=== PATIENT | male | born 1945 | race Hispanic/Latino ===

== ENCOUNTER 2019-12-26 09:32 | Inpatient (IN) | payer MEDICARE, OTHER ==
[~2019-12-26] VITALS: Ht 162.6 cm; Wt 81.4 kg
[2019-12-26 09:58] LABS: BASOPHILS % 0.2 % (0.0-1.0); EOSINOPHILS % 0.2 % (0.0-6.0); HEMATOCRIT 40.8 % (38.2-49.6); HEMOGLOBIN 13.4 g/dL (14.0-18.0); LYMPHOCYTES # (AUTO) 2.5 (1.0-3.2); LYMPHOCYTES % 18.9 % (18.0-39.1); MEAN CORPUSCULAR HEMOGLOBIN 28.2 pg (28-32); MEAN CORPUSCULAR HGB CONC 32.8 g/dL (31-35); MEAN CORPUSCULAR VOLUME 85.7 fL (81-99); MONOCYTES # (AUTO) 0.9 (0.2-0.8); MONOCYTES % 6.5 % (4.4-11.3); NEUTROPHILS # (AUTO) 9.6 (2.1-6.9); NEUTROPHILS % 73.8 % (38.7-80.0); PLATELET COUNT 317 x10e3/uL (140-360); RED BLOOD COUNT 4.76 x10e6/uL (4.3-5.7); RED CELL DISTRIBUTION WIDTH 13.2 % (11.7-14.4)
--- NOTE | 2019-12-26 10:13 | Diagnostic Imaging Report ---
EXAMINATION: CHEST SINGLE (PORTABLE) INDICATION: Arm numbness COMPARISON: None FINDINGS: LINES/TUBES:None LUNGS:The lungs are well-inflated. No focal consolidation or pulmonary edema. PLEURA:No pleural effusion or pneumothorax. MEDIASTINUM:The cardiomediastinal silhouette appears normal in size and shape. BONES/SOFT TISSUES:No acute osseous injury. ABDOMEN:No free air under the diaphragm. IMPRESSION: No focal pneumonia or pulmonary edema. Signed by: Shima Maurer MD on 12/26/2019 10:10 AM
[2019-12-26 10:15] LABS: PROTHROMBIN TIME 13.7 seconds (11.9-14.5)
[2019-12-26 10:16] LABS: PARTIAL THROMBOPLASTIN TIME 35.1 seconds (23.8-35.5)
[2019-12-26 10:29] LABS: ALANINE AMINOTRANSFERASE 16 IU/L (0-55); ALBUMIN/GLOBULIN RATIO 1.1 (0.8-2.0); ALKALINE PHOSPHATASE 74 IU/L (40-150); BLOOD UREA NITROGEN 13 mg/dL (7-26); BUN/CREATININE RATIO 14 (6-25); CALCIUM 9.9 mg/dL (8.4-10.2); CARBON DIOXIDE 26 mmol/L (22-29); CHLORIDE 99 mmol/L (98-107); CREATINE KINASE 338 IU/L (30-200); CREATININE, SERUM 0.94 mg/dL (0.72-1.25); EST GLOMERULAR FILTRATION RATE > 60 ML/MIN (60-); GLUCOSE 185 mg/dL (74-118); SODIUM 132 mmol/L (136-145)
[2019-12-26] MEDS ORDERED: SODIUM CHLORIDE 0.9% 50ML 50 ML ONE (10:29)
--- NOTE | 2019-12-26 10:29 | Diagnostic Imaging Report ---
Exam: Head CT without contrast History: Left arm numbness x2 days, history of brain tumor Comparison studies: None Technique: Axial images were obtained from the skull base to the vertex prior to and following administration of IV contrast. Coronal and sagittal images reconstructed from the axial data. Dose modulation, iterative reconstruction, and/or weight based adjustment of the mA/kV was utilized to reduce the radiation dose to as low as reasonably achievable. Radiation dose: Total DLP: 1842 mGy*cm. Estimated effective dose: DLP x 0.015 Intravenous contrast: 100 cc Isovue-300. Findings: Scalp and bones: Postsurgical changes of prior right parietal craniotomy. Brain sulci: Mildly prominent. Ventricles: Mild ex vacuo dilatation of the atria of the right lateral ventricle. Mild compensatory dilatation of the remaining ventricles. No acute hydrocephalus. Extra-axial spaces: No masses, no fluid collection. Parenchyma: Postsurgical changes with resection cavity in the right parietal lobe beneath a right parietal craniotomy for previous tumor resection. Regional nonspecific hypodense changes without significant mass effect are present throughout the right parietal white matter, posterior right temporal lobe, anteriorly along the right precentral gyrus within the splenium of the corpus callosum. These changes may be gliosis or edema secondary to treatment or possibly nonenhancing infiltrating tumor (such as that in the context of a primary glial neoplasm). No enhancing mass. No acute hemorrhage or acute cortical infarct. A few scattered hypodensities in the supratentorial white matter are nonspecific but may be mild chronic microvascular ischemic changes. Sellar/suprasellar region: No abnormalities. Craniocervical junction: Patent foramen magnum. No Chiari one malformation. Incidental findings: Partially opacified right sphenoid sinus with mucosal thickening. Atherosclerotic calcifications in the carotid siphons an in the right intradural vertebral artery. IMPRESSION: 1. No acute intracranial abnormalities. 2. Right parietal craniotomy for prior tumor resection with underlying resection cavity and region nonspecific parenchymal hypodense changes without significant mass effect as described. No enhancing mass. Recommend correlation with surgical/treatment history. Comparison with prior outside imaging is also advised to document stability of these findings. 3. Mild generalized parenchymal volume loss. 4. Mild chronic microvascular ischemic changes. Signed by: Dr. Abdulkadir Sarmiento M.D. on 12/26/2019 10:25 AM
[2019-12-26] MEDS ORDERED: IOPAMIDOL 370 MG/ML 200 ML INFUS..BTL INJ ONE (10:30)
[2019-12-26] MEDS ORDERED: ASPIRIN 325 MG TAB PO ONE (10:45)
--- NOTE | 2019-12-26 11:01 | Emergency Department Note ---
History of Present Illnes History of Present Illness Chief Complaint: General Medicine Complaints History of Present Illness This is a 74 year old male . hief Complaint Comment YESTERDAY LEFT ARM WENT NUMB AND HARD TIME USING LEFT HAND. PT AAOX4. SLOW, BUT ABLE TO AMBULATE. NO SLURRED SPEECH. PT HAS BRAIN TUMOR DX 3 YRS AGO. Historian: Patient, Family Member Arrival Mode: Car Onset (how long ago): day(s) (2) Location: LEFT ARM NUMBNESS Quality: NUMBNESS Radiation: Denies non-radiation, Denies back, Denies neck, Denies extremity, Denies abdomen, Denies periumbilical, Denies flank, Denies proximal, Denies distal, Denies other Severity: moderate Onset quality: gradual Duration (how long): day(s) (2) Timing of current episode: constant Progression: unchanged Chronicity: new Context: Denies recent illness, Denies recent surgery, Denies recent immobilization, Denies recent travel, Denies trauma/injury, Denies new medications, Denies hx of DVT/PE, Denies non-compliance w/ medications, Denies other Relieving factors: none Exacerbating factors: none Associated symptoms: Denies denies other symptoms, Denies confusion, Denies chest pain, Denies cough, Denies diaphoresis, Denies fever/chills, Denies headaches, Denies loss of appetite, Denies malaise, Denies nausea/vomiting, Denies rash, Denies seizure, Denies shortness of breath, Denies syncope, Denies weakness, Denies other Treatments prior to arrival: none Past Medical/Family History Physician Review I have reviewed the patient's past medical and family history. Any updates have been documented here. Past Medical History Recent Fever: No Clinical Suspicion of Infectio: No New/Unexplained Change in Ment: No Other Medical History: GLIOBLASTOMA (DX 2017) Social History Smoking Cessation: Unknown if ever smoked Counseling Performed: No Alcohol Use: None Any Illegal Drug Use: No Physically hurt or threatened: No Other Any Pre-Existing Lines (PICC,: No Review of Systems Review of Systems Constitutional: Reports no symptoms EENTM: Reports no symptoms Cardiovascular: Reports no symptoms Respiratory: Reports no symptoms Gastrointestinal: Reports no symptoms Genitourinary: Reports no symptoms Musculoskeletal: Reports no symptoms Integumentary: Reports no symptoms Neurological: Reports as per HPI Psychological: Reports no symptoms Endocrine: Reports no symptoms Hematological/Lymphatic: Reports no symptoms Physical Exam Related Data Allergies: Coded Allergies: No Known Allergies (Unverified , 12/26/19) Triage Vital Signs Vital Signs Date Time Temp Pulse Resp B/P (MAP) Pulse Ox O2 Delivery O2 Flow Rate FiO2 12/26/19 09:35 99.2 91 26 173/91 98 Room Air Vital signs reviewed: Yes Physical Exam CONSTITUTIONAL Constitutional: Present well-developed, Present well-nourished HENT HENT: Present normocephalic, Present atraumatic, Present oropharynx clear/moist, Present nose normal HENT L/R: Present left ext ear normal, Present right ext ear normal EYES Eyes: Reports PERRL, Reports conjunctivae normal NECK Neck: Present ROM normal PULMONARY Pulmonary: Present effort normal, Present breath sounds normal CARDIOVASCULAR Cardiovascular: Present regular rhythm, Present heart sounds normal, Present capillary refill normal, Present normal rate GASTROINTESTINAL Abdominal: Present soft, Present nontender, Present bowel sounds normal GENITOURINARY Genitourinary: Present exam deferred SKIN Skin: Present warm, Present dry MUSCULOSKELETAL Musculoskeletal: Present ROM normal NEUROLOGICAL Neurological: Present alert, Present oriented x 3, Present weakness (LEFT UPPER EXT 4/5) PSYCHOLOGICAL Psychological: Present mood/affect normal, Present judgement normal Results Laboratory Result Diagram: 12/26/19 0950 12/26/19 0950 Laboratory Laboratory Tests Test 12/26/19 09:50 White Blood Count 13.04 x10e3/uL (4.8-10.8) Red Blood Count 4.76 x10e6/uL (4.3-5.7) Hemoglobin 13.4 g/dL (14.0-18.0) Hematocrit 40.8 % (38.2-49.6) Mean Corpuscular Volume 85.7 fL (81-99) Mean Corpuscular Hemoglobin 28.2 pg (28-32) Mean Corpuscular Hemoglobin Concent 32.8 g/dL (31-35) Red Cell Distribution Width 13.2 % (11.7-14.4) Platelet Count 317 x10e3/uL (140-360) Neutrophils (%) (Auto) 73.8 % (38.7-80.0) Lymphocytes (%) (Auto) 18.9 % (18.0-39.1) Monocytes (%) (Auto) 6.5 % (4.4-11.3) Eosinophils (%) (Auto) 0.2 % (0.0-6.0) Basophils (%) (Auto) 0.2 % (0.0-1.0) Neutrophils # (Auto) 9.6 (2.1-6.9) Lymphocytes # (Auto) 2.5 (1.0-3.2) Monocytes # (Auto) 0.9 (0.2-0.8) Eosinophils # (Auto) 0.0 (0.0-0.4) Basophils # (Auto) 0.0 (0.0-0.1) Absolute Immature Granulocyte (auto 0.05 x10e3/uL (0-0.1) Prothrombin Time 13.7 seconds (11.9-14.5) Prothromb Time International Ratio 1.00 Activated Partial Thromboplast Time 35.1 seconds (23.8-35.5) Sodium Level 132 mmol/L (136-145) Potassium Level 4.0 mmol/L (3.5-5.1) Chloride Level 99 mmol/L (98-107) Carbon Dioxide Level 26 mmol/L (22-29) Anion Gap 11.0 mmol/L (8-16) Blood Urea Nitrogen 13 mg/dL (7-26) Creatinine 0.94 mg/dL (0.72-1.25) Estimat Glomerular Filtration Rate > 60 ML/MIN (60-) BUN/Creatinine Ratio 14 (6-25) Glucose Level 185 mg/dL (74-118) Calcium Level 9.9 mg/dL (8.4-10.2) Total Bilirubin 0.6 mg/dL (0.2-1.2) Aspartate Amino Transf (AST/SGOT) 17 IU/L (5-34) Alanine Aminotransferase (ALT/SGPT) 16 IU/L (0-55) Alkaline Phosphatase 74 IU/L (40-150) Creatine Kinase 338 IU/L (30-200) Creatine Kinase MB 0.60 ng/mL (0-5.0) Troponin I 0.001 ng/mL (0-0.300) Total Protein 7.5 g/dL (6.5-8.1) Albumin 4.0 g/dL (3.5-5.0) Globulin 3.5 g/dL (2.3-3.5) Albumin/Globulin Ratio 1.1 (0.8-2.0) Lab results reviewed: Yes Imaging Imaging results reviewed: Yes Procedures 12 Lead ECG Interpretation ECG Interpretation : ECG: ECG 1 Cost Specialist: Interpreted by ED physician Date: Dec 26, 2019 Time: 09:26 Rhythm: sinus rhythm Rate: normal BPM: 88 Conduction: complete RBBB ST segments normal: Yes T waves normal: Yes Assessment & Plan Medical Decision Making MDM CVA TUMOR RECURRENCE Reassessment Reassessment time: 11:00 Reassessment SAME Assessment & Plan Final Impression: (1) CVA (cerebral vascular accident) (2) Hyperglycemia Depart Disposition: ADMITTED Last Vital Signs Date Time Temp Pulse Resp B/P (MAP) Pulse Ox O2 Delivery O2 Flow Rate FiO2 12/26/19 10:02 82 13 170/ 98 Room Air 12/26/19 09:35 99.2 Medications in the ED Sodium Chloride 50 ml @ ud STK-MED ONCE .ROUTE ; Start 12/26/19 at 10:29; Stop 12/26/19 at 10:23; Status DC Iopamidol 74,000 mg STK-MED ONCE INJ ; Start 12/26/19 at 10:30; Stop 12/26/19 at 10:24; Status DC Aspirin 325 mg ONCE ONCE PO ; Start 12/26/19 at 10:45; Stop 12/26/19 at 10:46; Status DC ABIMBOLA DE LA CRUZ MD Dec 26, 2019 11:01
[2019-12-26] MEDS: SODIUM CHLORIDE 0.9% 1000ML 1,000 ML IV SCH (11:44)
[2019-12-26] MEDS ORDERED: HYDROCHLOROTH12.5 MG (14:51)
[2019-12-26] MEDS ORDERED: LOSARTAN POTASS50 MG PO (14:51)
[2019-12-26] MEDS ORDERED: MUPIROCIN22 GM (14:51)
[2019-12-26] MEDS ORDERED: RELION NOV100 UNIT/1 (14:51)
[2019-12-26] MEDS ORDERED: LEVETIRACETAM500 MG PO (14:51)
[2019-12-26] MEDS ORDERED: COLESTIPOL HCL1 G1 PO (14:51)
[2019-12-26] MEDS ORDERED: LISINOPRIL-HCT1 EACH (14:51)
[2019-12-26] MEDS ORDERED: JANUMET XR 50-1 EAC1 PO (14:51)
[2019-12-26] MEDS ORDERED: TRAZODONE HCL100 MG PO (14:51)
[2019-12-26] MEDS ORDERED: LOVASTATIN40 MG PO (14:51)
[2019-12-26] MEDS ORDERED: OMEPRAZOLE20 MG PO (14:51)
[2019-12-26] MEDS ORDERED: FLUZONE (14:51)
[2019-12-26] MEDS ORDERED: FINASTERIDE5 MG PO (14:51)
[2019-12-26 15:28] VITALS: BP 166/84
[2019-12-26 15:32] VITALS: BP 166/84
--- NOTE | 2019-12-26 15:49 | NUR ---
PATIENT ARRIVED ON THE UNIT AT 1456 FROM THE ER. PATIENT IS AWAKE, ALERT TO SELF, PLACE, AND TIME OF YEAR- PATIENT IN STABLE CONDITION WITH NO S/S OF RESPIRATORY DISTRESS. NO PAIN VOICED. SKINS INTACT. TELEMETRY APPLIED. HANDS AND LEG STRENGTH IS PRESENT. URINAL PROVIDED TO PATIENT. BED ALARM APPLIED. CALL LIGHT IS WITHIN REACH, PATIENT INSTRUCTED TO CALL FOR ASSISTANCE NEEDED.
[2019-12-26 16:04] VITALS: BP 166/84
[2019-12-26] MEDS ORDERED: ASPIRIN81 MG PO (17:56)
[2019-12-26] MEDS ORDERED: DEXTROSE 50% SYRINGE 50 ML IV PRN (18:45)
--- NOTE | 2019-12-26 19:00 | NUR ---
Resumed care of patient. Patient awake and resting in bed, respirations even and unlabored on room air, no s/s of distress at this time. Bed locked and in lowest position, side rails upx3, alarm on, call light placed within reach. Patient instructed to call for assistance if needed, verbalized understanding. All safety measures in place.
--- NOTE | 2019-12-26 19:17 | NUR ---
PATIENT IN STABLE CONDITION WITH NO S/S OF RESPIRATORY DISTRESS. NO PAIN VOICED. TELEMETRY APPLIED. IV FLUIDS INFUSING. AIR PUMP AND BED ALARM APPLIED. CALL LIGHT IS WITHIN REACH, PATIENT INSTRUCTED TO CALL FOR ASSISTANCE NEEDED. REPORT GIVEN TO ONCOMING NURSE.
[2019-12-26 20:00] VITALS: BP 152/79
[2019-12-26] MEDS ORDERED: ACETAMINOPHEN 325 MG TAB PO PRN (20:45)
[2019-12-26] MEDS: INSULIN LISPRO 100 UNIT/1 ML 3ML VIAL SQ SCH (21:15)
[2019-12-26 21:26] VITALS: BP 152/79
[2019-12-27] VITALS (8 sets, daily range): BP systolic 125–164; BP diastolic 56–98
[2019-12-27] MEDS: SODIUM CHLORIDE 0.9% 1000ML 1,000 ML IV SCH ×2 (00:35→13:55)
[2019-12-27 06:10] LABS: BASOPHILS % 0.2 % (0.0-1.0); EOSINOPHILS # (AUTO) 0.1 (0.0-0.4); EOSINOPHILS % 1.2 % (0.0-6.0); HEMATOCRIT 37.7 % (38.2-49.6); HEMOGLOBIN 12.5 g/dL (14.0-18.0); LYMPHOCYTES # (AUTO) 2.4 (1.0-3.2); LYMPHOCYTES % 29.2 % (18.0-39.1); MEAN CORPUSCULAR HEMOGLOBIN 27.5 pg (28-32); MEAN CORPUSCULAR HGB CONC 33.2 g/dL (31-35); MONOCYTES # (AUTO) 0.8 (0.2-0.8); MONOCYTES % 9.2 % (4.4-11.3); PLATELET COUNT 294 x10e3/uL (140-360); RED BLOOD COUNT 4.54 x10e6/uL (4.3-5.7); RED CELL DISTRIBUTION WIDTH 13.4 % (11.7-14.4)
[2019-12-27 06:32] LABS: ALANINE AMINOTRANSFERASE 12 IU/L (0-55); ALBUMIN 3.6 g/dL (3.5-5.0); ALBUMIN/GLOBULIN RATIO 1.2 (0.8-2.0); ALKALINE PHOSPHATASE 61 IU/L (40-150); ANION GAP 8.6 mmol/L (8-16); BLOOD UREA NITROGEN 11 mg/dL (7-26); BUN/CREATININE RATIO 13 (6-25); CARBON DIOXIDE 25 mmol/L (22-29); CHLORIDE 104 mmol/L (98-107); CREATININE, SERUM 0.85 mg/dL (0.72-1.25); EST GLOMERULAR FILTRATION RATE > 60 ML/MIN (60-); GLUCOSE 145 mg/dL (74-118); POTASSIUM 3.6 mmol/L (3.5-5.1); SODIUM 134 mmol/L (136-145)
[2019-12-27] MEDS: INSULIN LISPRO 100 UNIT/1 ML 3ML VIAL SQ SCH ×4 (08:30→20:55)
[2019-12-27] MEDS: ASPIRIN 81 MG CHEW TAB PO SCH (08:35)
[2019-12-27] MEDS: LOSARTAN POTASSIUM 25 MG TAB PO SCH (08:35)
[2019-12-27] MEDS: PANTOPRAZOLE SOD 40 MG TABEC PO SCH (08:35)
[2019-12-27] MEDS: LEVETIRACETAM 500 MG TAB PO SCH ×2 (08:35→21:08)
[2019-12-27] MEDS: SITAGLIPTIN 100 MG TAB PO SCH (08:36)
[2019-12-27] MEDS: COLESTIPOL HCL 1 G TAB PO SCH ×2 (08:36→23:15)
[2019-12-27] MEDS ORDERED: NON-FORMULARY MEDICATION (Losartan Potassium 50 MG) PO SCH (09:00)
[2019-12-27] MEDS ORDERED: NON-FORMULARY MEDICATION (Sitagliptin Phos/Metformin Hcl (Janumet Xr 50-1,000 Mg Tablet) 1 PO SCH (09:00)
[2019-12-27] MEDS ORDERED: ASPIRIN 325 MG TAB EC PO SCH (09:00)
--- NOTE | 2019-12-27 19:00 | NUR ---
RECEIVED PATIENT IN BEDSIDE SHIFT REPORT. PATIENT RESTING IN BED AT THIS TIME. NO PAIN REPORTED. NO S&S OF DISTRESS NOTED. L ARM WEAKNESS NOTED. BED ALARM ACTIVE. REMINDED PATIENT TO KEEP R ARM STRAIGHT TO RECEIVE IV FLUIDS, PATIENT VERBALIZED UNDERSTANDING. PATIENT VERBALIZED HE WOULD CALL TO USE URINAL AND NOT GET UP WITHOUT HELP. BED LOCKED IN LOWEST POSITION, SIDE RAILS UPX2, CALL LIGHT IN REACH.
[2019-12-27 19:57] LABS: CHOL/HDL RATIO 2.7 (3.9-4.7)
[2019-12-27 20:18] LABS: FREE THYROXINE INDEX 1.8409 (1.4-3.8); THYROID STIMULATING HORMONE 0.441 uIU/mL (0.350-4.940)
[2019-12-27] MEDS ORDERED: NON-FORMULARY MEDICATION (Trazodone Hcl 100 MG) PO SCH (21:00)
[2019-12-27] MEDS ORDERED: SIMVASTATIN 20 MG TAB PO SCH (21:00)
[2019-12-27] MEDS: TRAZODONE HCL 50 MG TAB PO SCH (21:08)
[2019-12-27] MEDS: SIMVASTATIN 40 MG TAB PO SCH (21:08)
[2019-12-27] MEDS: FINASTERIDE 5 MG TAB PO SCH (21:08)
[2019-12-28] VITALS (8 sets, daily range): BP systolic 138–156; BP diastolic 64–108
--- NOTE | 2019-12-28 01:01 | History and Physical ---
CHIEF COMPLAINT: The patient is a 74-year-old male with a history of brain tumor, status post resection, came in with left palm numbness. HISTORY OF PRESENT ILLNESS: Mr. Thomas Small with history of craniotomy, was in usual health until the morning of admission. The patient started to have some weakness in the left arm uncontrolled. There were movements, which is not controllable also. The patient complains of some paresthesias in the left palm. The patient came into the emergency room, was admitted to the hospital for possible TIA/CVA. CT scan was negative, so CVA ruled out. The patient is admitted for further interrogation. PAST MEDICAL HISTORY: History of hypertension, history of hyperlipidemia, history of diabetes mellitus, history of brain CA, status post resection at [facility]. He had a glioblastoma with resection in 2017. MEDICATIONS: He takes at home include: 1. Aspirin 81 mg. 2. Colestipol 1 g b.i.d. 3. Finasteride 5 mg for BPH. 4. For his diabetes, he takes 70/30 insulin. 5. Keppra 500 mg q.12 hours. 6. Losartan 50 mg daily. 7. Lovastatin 40 mg at nighttime. 8. Sitagliptin and metformin combination once a day. 9. Trazodone 100 mg at nighttime. REVIEW OF SYSTEMS: Negative for chest pain. No shortness of breath. No nausea, vomiting, or diarrhea. No constipation. No rectal bleeding. No hematochezia. No hematemesis. Positive for paresthesias as noted above. No diplopia. No blurry vision. Also positive for chorea like movement in the left arm. ALLERGIES: NO KNOWN DRUG ALLERGIES. SURGICAL HISTORY: As mentioned above, removal of the glioblastoma. PHYSICAL EXAMINATION: GENERAL: The patient is alert and oriented x3. Slightly emotional. VITAL SIGNS: Temperature 99.4, pulse 101, respirations of 20, blood pressure is 146/95, pulse oximetry of 100%. HEENT: Normocephalic, atraumatic. Pupils are reactive. CVS: S1 and S2 normal. Regular rhythm. LUNGS: Clear to auscultation. ABDOMEN: Soft, nontender. EXTREMITIES: No clubbing, no cyanosis, no edema. NEUROLOGICAL: Positive for paresthesia in the left upper extremity. Some rigidity noted, hypertonic in that arm, otherwise baseline neurological changes. LABORATORY VALUES: White count is 13,000 yesterday, today is 8.35, hemoglobin 13.4, hematocrit of 12.5. Chemistries; sodium 134, potassium of 104, BUN 11, creatinine 0.85, glucose of 160s to 230. Brain CT shows no acute intracranial abnormalities. Right temporal craniotomy from prior tumor resection. Mild generalized parenchymal volume loss and microvascular changes. Chest x-ray, no focal pneumonia or pulmonary edema. ASSESSMENT: Mr. Small with: 1. Focal neurological changes in the left arm. 2. History of glioblastoma with resection. 3. Hypertension. 4. Hyperlipidemia. 5. History of diabetes mellitus. PLAN: With history of glioblastoma and also with multiple comorbidities, we will go and do an MRI and MRA of the neck. Consult with Dr. Lemon. Vitamin B12 will be ordered. TSH will be ordered too. Physical therapy has been ongoing and started. Further recommendation per clinical course. We will continue monitor the patient. Discharge probably tomorrow if okay with Neurology and we will continue the aspirin. MD KEKE Jarvis/MODL /[id number]
[2019-12-28] MEDS: SODIUM CHLORIDE 0.9% 1000ML 1,000 ML IV SCH ×2 (03:15→16:35)
--- NOTE | 2019-12-28 05:17 | NUR ---
PATIENT AMBULATED TO RESTROOM WITH WALKER AND ONE PERSON ASSIST. SLOW, MOSTLY STEADY GAIT NOTED. SOME BALANCE CHECKS NOTED. PATIENT STOOD AT SINK TO PERFORM PERSONAL HYGIENE WITHOUT INCIDENT. RETURNED TO BED SAFELY. PATIENT STATED HE FELT HIS LEFT ARM IS "WORKING BETTER" THAN IT DID YESTERDAY. WILL CONTINUE TO MONITOR.
[2019-12-28] MEDS: INSULIN LISPRO 100 UNIT/1 ML 3ML VIAL SQ SCH ×4 (07:30→22:03)
--- NOTE | 2019-12-28 08:18 | Progress Note ---
DATE: SUBJECTIVE: This is a 74-year-old gentleman, who came in with paresthesias of the left upper extremity. MRI has been ordered. The patient has been seen by Dr. Lemon. Orders will be done. OBJECTIVE: VITAL SIGNS: Currently, temperature is 97.4, pulse of 59, respirations of 18, T-max 99.4, blood pressure is 138/78. HEENT: Normocephalic and atraumatic. CVS: S1 and S2 normal. Regular rate and rhythm. ABDOMEN: Soft, nontender, nondistended. EXTREMITIES: No clubbing, no cyanosis, no edema. Still continues of some weakness in the left upper extremity and paresthesias. IMAGING STUDIES: MRI is scheduled today. ASSESSMENT: Mr. Thomas Small with: 1. Focal neurological changes, left arm. 2. History of glioblastoma with resection. 3. History of hypertension. 4. History of hyperlipidemia. 5. History of diabetes mellitus. PLAN: MRI today. Carotid Doppler today. Vitamin B12 will be replaced. Physical therapy is ongoing. Plan is to continue medication. Discharge depending on MRI results. Further recommendation per clinical course and also on Neurology recommendations. MD KEKE Jarvis/RAMONA /[id number]
[2019-12-28] MEDS: CYANOCOBALAMIN INJ 1,000 MCG/ML VIAL IM SCH (08:52)
[2019-12-28] MEDS: PANTOPRAZOLE SOD 40 MG TABEC PO SCH (08:52)
[2019-12-28] MEDS: METFORMIN HCL 500 MG TAB CR PO SCH (08:52)
[2019-12-28] MEDS: SITAGLIPTIN 100 MG TAB PO SCH (08:53)
[2019-12-28] MEDS: LOSARTAN POTASSIUM 25 MG TAB PO SCH (08:53)
[2019-12-28] MEDS: ASPIRIN 81 MG CHEW TAB PO SCH (08:53)
[2019-12-28] MEDS: LEVETIRACETAM 500 MG TAB PO SCH ×2 (08:54→21:59)
[2019-12-28] MEDS: OXCARBAZEPINE 300 MG TAB PO SCH ×2 (08:54→16:55)
[2019-12-28] MEDS: COLESTIPOL HCL 1 G TAB PO SCH ×2 (08:55→23:12)
[2019-12-28] MEDS ORDERED: GADOBENATE DIMEGLUMINE 1 ML IV ONE (09:49)
[2019-12-28] MEDS ORDERED: CHLORASEPTIC SPRAY 177 ML BTL MM PRN (10:00)
--- NOTE | 2019-12-28 10:55 | NUR ---
Patient is transported for MRI at this time.
--- NOTE | 2019-12-28 11:08 | Consultation ---
DATE OF CONSULTATION: Neurology Consultation HISTORY OF PRESENT ILLNESS: The patient is a 74-year-old gentleman with history of what he reports is a glioblastoma about three years ago, status post resection, chemotherapy, comes in with left hand and thumb numbness and paresthesias. He described as electrical feeling in the left hand. He is primarily left-handed. He had history of craniotomy and follows up yearly with his oncologist at [facility]. He does have a history of hypertension, hyperlipidemia. Denies history of nerve impingement or carpal tunnel syndrome. Denies head trauma. Denies seizures. The symptoms started on Thursday, they have continued and he is not able to pretty severe cortical sensory dysfunction, although it could be still a nerve impingement. MEDICATIONS: At home, he is on aspirin, cholesterol medications, antiepileptic, Keppra 500 mg b.i.d., and he is on insulin for diabetes. REVIEW OF SYSTEMS: No headache, nausea, vomiting, double vision or visual loss symptoms. SURGICAL HISTORY: Craniotomy, affecting the right hemisphere and again the symptoms on the left. PHYSICAL EXAMINATION: VITAL SIGNS: Show that he is afebrile at times with a temperature of 99.4, his heart rate mildly tachycardic to 101, blood pressure 164/86. HEENT: His extraocular muscles are intact. His face appears symmetric. His expressive speech is a little bit off, mild aphasia, but he is oriented x4. EXTREMITIES: Able to lift both arms. He does have a sensory drift in the left hand. It is not clear if that is new or old. He was not aware of it before. He has mild sensory ataxia in the left hand as well, but his tanning wheel filler is otherwise 5/5 if he looks at his . His reflexes are brisk on the left. Toes upgoing on the left, this is likely chronic. ABDOMEN: Soft, nontender. CARDIOVASCULAR: Regular rate and rhythm. NEUROLOGIC: Sensory is asymmetrically dysfunction on the left upper extremity. ASSESSMENT AND PLAN: Given his complex history of glioblastoma multiforme with cortical dysfunction is possible and even possible that he has recurrence of his glioblastoma. Glioblastomas are very difficult to fully resect and so may be back, however, it could also be a focal neurological dysfunction an MRI will be warranted to evaluate that. Continue him in the meantime on aspirin and cholesterol medication, and lastly, this could be a carpal tunnel syndrome given the location of the sensory dysfunction, this is still possible, carpal tunnel syndrome is very-very common and I am going to start him on trileptal that will treat all three except for the stroke and we will get an EEG and MRI and proceed from there. If there is recurrence of tumor, we will refer him back to Oncology. If it is a stroke, we would need more aggressive stroke workup and if it is just focal paresthesias, an EMG will be warranted for cervical and medial impingement or carpal tunnel impingement. MD SAMMIE SMILEY/RAMONA /[id number]
--- NOTE | 2019-12-28 11:43 | NUR ---
patient is back from MRI
--- NOTE | 2019-12-28 12:21 | Diagnostic Imaging Report ---
History: CVA, glioblastoma Comparison studies: Head CT 12/26/2019 Technique: Axial DWI, sagittal axial T2, precontrast axial T1, axial T2 FLAIR and postcontrast axial, coronal and sagittal T1 FS. Intravenous contrast: 15 cc of MultiHance. Findings: Scalp and bone marrow: Surgical changes of prior right parietal craniotomy. Brain sulci: Mildly prominent. Ventricles: Mild ex vacuo dilatation of the atria the right lateral ventricle. Mild compensatory dilatation remaining ventricles. No hydrocephalus. Parenchyma: Postsurgical changes with resection cavity centered in the right parietal lobe beneath a right parietal craniotomy for previous tumor resection. Ill-defined linear enhancement along the margins of the resection cavity which are most pronounced along the superior and posterior resection cavity margins are better visualized on the current brain MRI than on the recent head CT and are nonspecific. Nonenhancing T2 FLAIR hyperintense signal changes around the resection cavity which extend to the right precentral deep and subcortical white matter and throughout the adjacent right parietal and posterior right temporal lobe are nonspecific but may be a combination of treatment-related changes and/or infiltrative tumor. Chronic hemosiderin staining is present along the margins of the resection cavity. No abnormal restricted diffusion. No acute hemorrhage. Nonenhancing T2 FLAIR hyperintensity which extends from the right periatrial white matter through the corpus callosum to the contralateral left periatrial white matter is nonspecific and may be treatment-related. No acute ischemia. A few scattered T2 FLAIR hyperintense foci in the supratentorial white matter are nonspecific but are most compatible with chronic microvascular ischemic changes. Suprasellar region: No abnormalities. Craniocervical junction: Patent foramen magnum. No Chiari one malformation. Vessels: Normal flow-voids in the arteries and sinuses. Incidental findings: Mucosal thickening in the right maxillary sinus with small bilateral maxillary sinus retention cyst. IMPRESSION: 1. No acute ischemia or other acute intracranial abnormalities. 2. Right parietal craniotomy for prior tumor resection with underlying resection cavity. Enhancement along the margins of the resection cavity and nonenhancing regional T2 FLAIR hyperintense signal changes are nonspecific but are favored to predominate reflect treatment-related changes. Moreover, these findings should be compared with outside imaging to evaluate for change and/or document stability. 3. Mild generalized parenchymal volume loss. 4. Mild chronic microvascular ischemic changes. Signed by: Dr. Abdulkadir Sarmiento M.D. on 12/28/2019 12:17 PM
--- NOTE | 2019-12-28 15:53 | NUR ---
Nutrition Screen Note RD Recommendation for Physician: -Continue current diet as ordered Plan of Care: RD following, monitoring for tolerance and adequacy Nutrition reason for involvement: Nutrition Risk Trigger Primary Diagnose(s): CVA, hyperglycemia PMH: hypertension, hyperlipidemia, diabetes, brain cancer s/p resection, glioblastoma with resection 2016 Ht: 64 in Wt:173 lb BMI: 29.7 kg/m2 IBW:[address] Assessment: (12/28/19) Chart reviewed. Labs and meds reviewed. Pt is a 74 year old male admitted with CVA and hyperglycemia. Attempted to call pt over the phone, but he did not answer. It is recorded that pt has been consuming 50-100% of meals. No reports of decreased appetite prior to admission, but pt reported unsure weight loss per chart. If PO intake is <50% of meals, offer Glucerna nutrition supplement. Will continue to monitor Current Diet: 1800 ADA Malnutrition Evaluation (12/28/19) The patient does not meet criteria for a specified degree of malnutrition at this time. Will re-evaluate at follow-up as appropriate. Diet Education Needs Assessment: RD is available for diet education as needed Nutrition Care Level: low Signed: Keily Torrez, RD, LD
--- NOTE | 2019-12-28 19:00 | NUR ---
Visited pt in room during nursing rounds. Patient alert and oriented x3. Ambulatory using walker with standy-assist prn. Patient has some moderate weakness on left upper extremity and minor weakness on BLE. IVF (NS at 75ml/hr) infusing. Call new within reach. Will monitor pt closely.
--- NOTE | 2019-12-28 20:00 | NUR ---
BEDSIDE SHIFT REPORT RECEIVED PM NURSE. PT IS ALERT AND ORIENTED X3. LUNGS CLEAR. RESPIRATIONS EVEN AND UNLABORED. TELE ON.LEFT SIDED WEAKNESS NOTED IN LEFT ARM. PT ABLE TO MOVE ARM BUT C/O ARM NUMB. VOIDING PER URINAL WITH ASSISTANCE. LBM YESTERDAY. PIV 20 RT AC. SITE HEALTHY. IV NS AT 75 ML/HR. CALL LIGHT WITHIN REACH. BED LOCKED AND IN LOW POSITION. BED ALARM ON.
--- NOTE | 2019-12-28 20:00 | NUR ---
Nurse (Ivan) spoke to daughter (Svetlana Hager). Daughter had some questions about her father's condition. Nurse was able to answer all questions of daughter to her satisfaction.
--- NOTE | 2019-12-28 20:30 | NUR ---
Report about patient given to Juan Carlos Mchugh (PAULA). New primary nurse for patient will be Juan Carlos damon.
[2019-12-28] MEDS: SIMVASTATIN 40 MG TAB PO SCH (21:59)
[2019-12-28] MEDS: TRAZODONE HCL 50 MG TAB PO SCH (21:59)
[2019-12-28] MEDS: FINASTERIDE 5 MG TAB PO SCH (21:59)
[2019-12-29] VITALS (7 sets, daily range): BP systolic 135–164; BP diastolic 63–86
[2019-12-29] MEDS: SODIUM CHLORIDE 0.9% 1000ML 1,000 ML IV SCH (05:51)
[2019-12-29] MEDS: INSULIN LISPRO 100 UNIT/1 ML 3ML VIAL SQ SCH ×3 (07:30→16:30)
[2019-12-29] MEDS: PANTOPRAZOLE SOD 40 MG TABEC PO SCH (09:22)
[2019-12-29] MEDS: ASPIRIN 81 MG CHEW TAB PO SCH (09:23)
[2019-12-29] MEDS: METFORMIN HCL 500 MG TAB CR PO SCH (09:23)
[2019-12-29] MEDS: LEVETIRACETAM 500 MG TAB PO SCH (09:23)
[2019-12-29] MEDS: CYANOCOBALAMIN INJ 1,000 MCG/ML VIAL IM SCH (09:23)
[2019-12-29] MEDS: SITAGLIPTIN 100 MG TAB PO SCH (09:23)
[2019-12-29] MEDS: LOSARTAN POTASSIUM 25 MG TAB PO SCH (09:23)
[2019-12-29] MEDS: OXCARBAZEPINE 300 MG TAB PO SCH ×2 (09:24→17:52)
[2019-12-29] MEDS: COLESTIPOL HCL 1 G TAB PO SCH (09:24)
--- NOTE | 2019-12-29 14:12 | NUR ---
ORDERS REC'D FOR ACUTE REHAB FROM DR MEYERS YESTERDAY PT AMBULATED 220 FEET WITH NO LOB TODAY PT AMBULATED 350 FEET WITH MINIMAL SUPERVISION AND NO LOB P.T. RECOMMENDS HOME WITH OUTPATIENT REHAB CALL TO DR MEYERS TO NOTIFY OF P.T.'S RECOMMENDATION AND NO CALL BACK PT HAS [employer] M[employer] AND PT DOES NOT MEET CRITERIA FOR ACUTE REHAB NOTE LEFT ON FRONT OF PT'S CHART FOR DR MEYERS
--- NOTE | 2019-12-29 15:03 | NUR ---
CASSANDRA SPOKE WITH PT'S , PAULINE WILCOX AT [phone] AND PT'S DAUGHTER IN [place], RAUL HAHN [phone] EXPLAINED THAT PT IS WALKING 350 FEET WITH MINIMAL SUPPORT AND NO LOSS OF BALANCE NO LTAC CRITERIA THEY ARE INTERESTED IN HOME HEALTH STATES THAT THEY HAD VISITING ANGELS PROVIDERS HELPING WITH PT AT HOME PRIOR TO COVID BUT THEY CHOSE TO STOP THE SERVICES DUE TO THE PANDEMIC RAUL STATES SHE HAS SPOKE WITH HER PARENTS ABOUT ASSISTED LIVING AND IS LOOKING INTO THIS FOR THE FUTURE RAUL ASKS THAT DR MEYERS GIVE HER A CALL TO DISCUSS PT'S SITUATION I PUT RAUL'S NAME AND PHONE NUMBER ON THE CHART AND ASKED DR MEYERS TO CALL HER IN THE MORNING I ALSO LEFT A NOTE ON THE CHART ASKING FOR HOME HEALTH ORDERS CM TO F/U IN AM
--- NOTE | 2019-12-29 16:04 | Progress Note ---
DATE: SUBJECTIVE: This is a 74-year-old gentleman with a history of glioblastoma, status post resection, came in with paresthesias of left upper extremities. The patient is currently doing well. Walked with physical therapy. No restrictions noted. Initially, a rehab consult was ordered, but today, the patient walked considerably enough to go home with home health. Awaiting Dr. Lemon's recommendation. Currently, no chest pain. No shortness of breath. No nausea. No vomiting. No diarrhea. No constipation. OBJECTIVE: VITAL SIGNS: The patient's temperature is 97.8, pulse of 90, respirations 17, and blood pressure is 143/83. HEENT: Normocephalic and atraumatic. Pupils are reactive. CVS: S1 and S2 normal. Regular rate and rhythm. ABDOMEN: Soft, nontender, and nondistended. EXTREMITIES: No clubbing. No cyanosis and/or no edema. NEUROLOGICAL: Sensory dysfunction in the left upper extremity noted. Otherwise, the patient is stable and in his baseline. IMAGING STUDIES: MRI shows no acute ischemic event, right partial craniotomy, mild generalized parenchymal loss, and mild chronic microvascular changes. ASSESSMENT: Mr. Thomas Small with: 1. Focal neurological changes, left arm of acute stroke has been ruled out. 2. History of glioblastoma with resection. 3. History of hypertension. 4. History of hyperlipidemia. 5. History of diabetes mellitus. 6. B12 deficiency. PLAN: Okay to discharge home from medicine standpoint of view. To be followed up with Neurology and also with MD Brady for his glioblastoma followup. Further recommendation per clinical course. We will continue to monitor the patient. MD KEKE Jarvis/ARIELL /[id number]
--- NOTE | 2019-12-29 16:59 | NUR ---
ORDERS FOR HOME HEALTH CARE, SNE, PT/OT AND DIRECTOR FRAUD CALLED PT'S PAULINE WHO STATES SHE WANTS [facility] STATES SHE HAS BEEN SPEAKING TO A NURSE NAMED YUMIKO, CELL: [phone] STATES YUMIKO WANTS ME TO FAX HER CLINICAL SO SHE CAN PROCEED WITH HOME HEALTH CM CALLED ABOVE NUMBER 6-7 TIMES, EACH TIME LINE IS BUSY VERIFIED PHONE NUMBER WITH MRS WILCOX CORRECT EXPLAINED TO MRS WILCOX THAT I AM TRYING TO REACH YUMIKO PER HER REQUEST TO INITIATE HOME HEALTH AND FAX CLINICALS WILL CONTINUE TO REACH OUT TO YUMIKO AND MRS WILCOX WILL HAVE YUMIKO CALL ME IF SHE REACHES HER BEFORE ME MRS WILCOX UNDERSTANDS THAT HER HUSBANDS HOME HEALTH CAN NOT BE SET UP UNTIL I SPEAK WITH RAUL CRAWFORD EXPLAINED TO MRS WILCOX OVER PHONE, TELEPHONE CONSENT TAKEN AND PLACED ON CHART COPY WITH PT'S BELONGINGS DISCHARGE HOME TODAY CM TO F/U WITH HOME HEALTH CARE
--- NOTE | 2019-12-29 17:12 | NUR ---
awake, calm no acute issues paresthesias- cortical dysfunction 97.6 142/66 aox3 HEENT: His extraocular muscles are intact. His face appears symmetric. His expressive speech is a little bit off, mild aphasia, but he is oriented x4. EXTREMITIES: Able to lift both arms. He does have a sensory drift in the left hand. It is not clear if that is new or old. He was not aware of it before. He has mild sensory ataxia in the left hand as well, but his flexographic press helper is otherwise 5/5 if he looks at his left arm His reflexes are brisk on the left. Toes upgoing on the left, this is likely chronic. ABDOMEN: Soft, nontender. CARDIOVASCULAR: Regular rate and rhythm. NEUROLOGIC: Sensory is asymmetrically dysfunction on the left upper extremity a/p diaskesis- right pareital causing left hemisensory dysfunction start lyrica 50 bid outpt follow up w/ primary neurologiy
--- NOTE | 2019-12-29 17:55 | NUR ---
Discharge education provided. Discharge packet given. Spoke with the regarding follow-up appointments. Verbalized understanding. PIV to right AC discontinued, with catheter intact, no bleeding noted. Awaiting for cherry picker operator.
--- NOTE | 2019-12-29 18:26 | NUR ---
Patient is transported via wheelchair to private vehicle. All personal belongings are taken.
--- NOTE | 2019-12-29 23:32 | Electroencephalogram ---
DATE OF STUDY: REQUESTING PHYSICIAN: PROCEDURE: 30-minute EEG. INDICATIONS: EEG is being done to evaluate for possible seizure activity. Neurophysiological dysfunction with setting of . EEG DATA: Posterior dominant rhythm was about 8 to 9 hertz anterior beta frequencies noted. Inferior rhythmic slowing is noted affecting probably the left and the right hemisphere with higher amplitude slow waves in the theta frequency. No seizures by previous study. EEG INTERPRETATION: This EEG is abnormal level 3 for focal hemispheric dysfunction affecting the left and the right hemisphere with further workup as an outpatient, but suggests cortical dysfunction and epileptogenicity. MD SAMMIE SMILEY/ARIELL /[id number]
--- OUTSIDE RECORDS SUMMARY | 2019-12-30 18:47 | XMS REPORT | Continuity of Care Document ---
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 krwplaklop6138-69-34 05:05:00* Test Item Value Reference Range Interpretation Comments Basophils (%) (Auto) (test code = 706-2) 0.2 0.0-1.0 [facility] SystemFluoroscopic procedure less than one hour fwsboczc8183-81-30 05:05:00* Test Item Value Reference Range Interpretation Comments IM GRANULOCYTES % (test code = IM GRANULOCYTES %) 0.2 0.0- 1.0 [facility] blood neutrophil count 2019-12-27 05:05:00* Test Item Value Reference Range Interpretation Comments Neutrophils # (Auto) (test code = 751-8) 5.0 2.1-6.9 [facility]Blood lymphocytes count (number/volume) 2019-12-27 05:05:00* Test Item Value Reference Range Interpretation Comments Lymphocytes # (Auto) (test code = 46437-1) 2.4 1.0-3.2 [facility] SystemBlood monocytes automated count (number/volume)2019-12-27 05:05:00* Test Item Value Reference Range Interpretation Comments Monocytes # (Auto) (test code = 742-7) 0.8 0.2-0.8 [facility] blood eosinophil count 2019-12-27 05:05:00* Test Item Value Reference Range Interpretation Comments Eosinophils # (Auto) (test code = 711-2) 0.1 0.0-0.4 [facility] SystemAutom[facility] blood basophil count (count/volume)2019-12-27 05:05:00* Test Item Value Reference Range Interpretation Comments Basophils # (Auto) (test code = 704-7) 0.0 0.0-0.1 [facility] SystemFluoroscopic procedure less than one hour aqaxhfou8107-12-29 05:05:00* Test Item Value Reference Range Interpretation Comments Absolute Immature Granulocyte (auto (em t code = Absolute Immature Granulocyte (auto) 0.02 0-0.1 [facility] SystemFlu[facility] procedure less than one hour bbxbkohl0848-47-72 05:05:00* Test Item Value Reference Range Interpretation Comments Hemoglobin A1c Percent (test code = Hemoglobin A1c Percent) 7.0 4.0-7.0 [facility] triglyceride [facility] (mass/volume)2019-12-27 05:05:00* Test Item Value Reference Range Interpretation Comments Triglycerides Level (test code = 2571-8) 137 0-149 [facility] cholesterol measurement (mass/volume)2019-12-27 05:05:00* Test Item Value Reference Range Interpretation Comments Cholesterol Level (test code = 2093-3) 142 0-199 Less than 200 mg/dL Low Xahd569 - 239 mg/dL Borderline Zjfu799 m g/dl and greater High Risk [facility] in LDL measurement (mass/volume) 2019-12-27 05:05:00* Test Item Value Reference Range Interpretation Comments LDL Cholesterol (test code = 2089-1) 63 60-130 [facility] in HDL measurement (mass/volume)2019-12-27 05:05:00* Test Item Value Reference Range Interpretation Comments HDL Cholesterol (test code = 2085-9) 52 40-60 [facility] total cholesterol/cholesterol in HDL mass laqfr8756-33-94 05:05:00* Test Item Value Reference Range Interpretation Comments Cholesterol/HDL Ratio (test code = 9830-1) 2.7 3.9-4.7 [facility] SystemFree thyroxine pxbee8481-39-97 05:05:00* Test Item Value Reference Range Interpretation Comments Free Thyroxine Index (test code = 86458-4) 1.8409 1.4-3.8 [facility] thyroxine (T4) measurement (mass/volume)2019-12-27 05:05:00* Test Item Value Reference Range Interpretation Comments Thyroxine (T4) (test code = 3026-2) 5.91 4.5-10.9 [facility] triiodothyronine resin uptake (T3RU)2019-12-27 05:05:00* Test Item Value Reference Range Interpretation Comments Triiodothyronine (T3) Uptake (test code = 3050-2) 31.15 22.5 -37.0 [facility] thyrotropin measurement by detection limit <= 0.005 miu/l (units/volume)2019-12-27 05:05:00* Test Item Value Reference Range Interpretation Comments Thyroid Stimulating Hormone (TSH) (test code = 93175-5) 0.441 0.350-4.940 [facility] SystemFlu[facility] procedure less than one hour arcqznfo0264-03-66 10:58:00* Test Item Value Reference Range Interpretation Comments Coronavirus (PCR) (test code = Coronavirus (PCR)) NOT DETECTED NOTD ETECTED [employer] Aptima SARS-CoV-2 assay is a nucleic amplification test intended for the qualitative detection of RNA from SARS-CoV-2 from nasopharyngeal ([employer]) specimens. It is used under Emergency Use Authorization (EUA) by FDA.A positive result is indicative of the presence of SARS-CoV-2 RNA. Clinical correlation with patient history and other diagnostic information is necessary to determine patient infe ction status.A negative (Not Detected) result does not preclude SARS-CoV-2 infec tion. Clinical Correlation with patient history and other diagnostic information should be used in patient management decisions.Invalid: Unable to generate a va lid result on this specimen. Please submit a new specimen for reprat testing oc clinically indicated.Tesing performed by:[facility] [address] [place] [address] [id number], Everardo Capellan MD, PhD [facility] SystemCHES SINGLE (PORTABLE)2019-12-26 10:09:00 [facility] [address] [address] Patient Name: HAMMAD WILCOX MR #: [id number] : 1945 Age/Sex: 74/M Req #: [id number] Adm Physician: Ordered by: ABIMBOLA DE LA CRUZ MD Report #: [id number] Location: ER Room/Bed: Procedure: [id number] DX/CHEST SINGLE (PO RTABLE) Exam Date: 12/26/19 Exam Time: 0950 REPORT STATUS: Signed EXAMINATION: CHEST SINGLE (PORTABLE) INDICATION: Arm numbness COMPARISON: None FINDINGS: LINES/TUBES:None LUNGS:The lungs are well-inflated. No focal consolidation or pulmonary edema. PLEURA:No pleural effusion or pneu mothorax. MEDIASTINUM:The cardiomediastinal silhouette appears normal in si ze and shape. BONES/SOFT TISSUES:No acute osseous injury. ABDOMEN:No f ree air under the diaphragm. IMPRESSION: No focal pneumonia or pulmon wayne edema. Signed by: Angelika Mari MD on 12/26/2019 10:10 AM Dictated By: ANGELIKA MARI MD 1010 Tra nscribed By: ANUPAM on 12/26/19 1010 COPY TO: ABIMBOLA DE LA CRUZ MD CT BRAIN [id number] 10:09:00 [place] [address] Patient Name: HAMMAD WILCOX MR #: [id number] : 1945 Age/Sex: 74/M Req #: [id number] Adm Physician: Ordered by: ABIMBOLA DE LA CRUZ MD Report #: [id number] Location: ER Room/Bed: Procedure: [id number] CT/CT BRAIN WOW Ex am Date: 12/26/19 Exam Time: 0950 REPORT STATUS: Signed Exam: Head CT without contrast History: Left arm numbness x2 days, history of brain tumor Comparison ju dies: None Technique: Axial images were obtained from the skull base to the vertex prior to and following administration of IV contrast. Coronal and sagittal images reconstructed from the axial data. Dose modulation, iterative reconstruction, and/or weight based adjustment of the mA/kV was utilized to reduce the radiation dose to as low as reasonably achievable. Radiation dose: Total DLP: 1842 mGy*cm. Estimated effective dose: DLP x 0.015 In travenous contrast: 100 cc Isovue-300. Findings: Scalp and bones: Post surgical changes of prior right parietal craniotomy. Brain sulci: Mildly p rominent. Ventricles: Mild ex vacuo dilatation of the atria of the right la teral ventricle. Mild compensatory dilatation of the remaining ventricles. No acute hydrocephalus. Extra-axial spaces: No masses, no fluid collection. Parenchyma: Postsurgical changes with resection cavity in the right par ietal lobe beneath a right parietal craniotomy for previous tumor resection. R egional nonspecific hypodense changes without significant mass effect are pres ent throughout the right parietal white matter, posterior right temporal lobe, anteriorly along the right precentral gyrus within the splenium of the corpus callosum. These changes may be gliosis or edema secondary to treatment or pos sibly nonenhancing infiltrating tumor (such as that in the context of a primar y glial neoplasm). No enhancing mass. No acute hemorrhage or acute cortica l infarct. A few scattered hypodensities in the supratentorial white matter are nonspecific but may be mild chronic microvascular ischemic changes. Sellar/suprasellar region: No abnormalities. Craniocervical junction: Patent f oramen magnum. No Chiari one malformation. Incidental findings: Parti ally opacified right sphenoid sinus with mucosal thickening. Atherosclerotic c alcifications in the carotid siphons an in the right intradural vertebral maribel ry. IMPRESSION: 1. No acute intracranial abnormalities. 2. Ri ght parietal craniotomy for prior tumor resection with underlying resection ca vity and region nonspecific parenchymal hypodense changes without significant mass effect as described. No enhancing mass. Recommend correlation with surgic al/treatment history. Comparison with prior outside imaging is also advised to document stability of these findings. 3. Mild generalized parenchymal volume loss. 4. Mild chronic microvascular ischemic changes. Signed by: Dr. Ethan Frankel M.D. on 12/26/2019 10:25 AM Dictated By: PREMA FRANKEL MD 1025 Transcribed By: ANUPAM on 12/26/19 1025 COPY TO: ABIMBOLA DE LA CRUZ MD Prothrombin time (PT) in platelet poor plasma by coagulation [id number] 09:50:00* Test Item Value Reference Range Interpretation Comments Prothrombin Time (test code = 5902-2) 13.7 11.9-14.5 [facility] SystemINR in Platelet poor plasma by Coagulation zylol0275-38-82 09:50:00* Test Item Value Reference Range Interpretation Comments Prothromb Time International Ratio (test code = 6301-6) 1.00 Oral Anticoagulant Therapy INR Values:1. Low Intensity Therapy 1.5 - 2.02 . Moderate Intensity Therapy 2.0 - 3.03. High Intensity Therapy(1) 2.5 - 3. 54. High Intensity Therapy(2) 3.0 - 4.05. Panic Value INR > 5.0 [facility] SystemActivated partial thromboplastin time (aPTT) in platelet poor plasma by coagulation isrch0625-08-37 09:50:00* Test Item Value Reference Range Interpretation Comments Activated Partial Thromboplast Time (test code = 48023-8) 35.1 23.8-35.5 [facility] SystemBNP Kbh-oBff9513-76-27 09:50:00* Test Item Value Reference Range Interpretation Comments B-Type Natriuretic Peptide (test code = 95068-3) 15.7 0-100 [facility] creatine kinase measurement (enzymatic activity/volume)2019-12-26 09:50:00* Test Item Value Reference Range Interpretation Comments Creatine Kinase (test code = 2157-6) 338 30-200 [facility] creatine kinase MB measurement (mass/volume)2019-12-26 09:50:00* Test Item Value Reference Range Interpretation Comments Creatine Kinase MB (test code = 37021-1) 0.60 0-5.0 [facility] SystemTroponin I measurement by highly sensitive enzyme lerlyxgekft0719-54-49 09:50:00* Test Item Value Reference Range Interpretation Comments Troponin I (test code = 29371-8) 0.001 0-0.300 [facility] SystemMRI Brain with and without Contrast 2019-11-10 13:46:04Stable imaging findings. No evidence of tumor progression. Interface, Radiology Results In - 11/10/2019 8:48 AM CDTFULL RESULT:EXAMINATION: MRI BRAIN W WO CONTRAST on 11/10/2019 8:29 AMHISTORY: Glioblastoma multiformeINDICATION: Glioblastoma on surveillance.COMPARISON: 08/11/2019.TECHNIQUE: Multi-sequence MRI of the brain with and without intravenous contrast as per standard departmental protocol.FINDINGS: Changes related to right parietal resection are stable. Linear enhancement is unchanged. Dural enhancement beneath craniotomy flap is noted. High FLAIR signal in the right parietal lobe extending into the posterior frontal lobe is not progressive. Ex vacuo dilatation of the left ventricular atrium and trigone is associated.High FLAIR signal crossing the splenium of the corpus callosum into the left periatrial white matter is stable. No related mass effect. The saray tricles are stable in size and within the midline. Intracranial vascular flow vo ids are maintained. No acute inflammatory changes within the paranasal sinuses.I MPRESSION:Stable imaging findings. No evidence of tumor progression. MD Jose Antonio WILSON NGS Blood - MD HURTADO Blood Control is required for all Molecular orders of two or more genes to receive testing on the current 146 gene STGA 2018 DNA Panel. If MD HURTADO Blood Control is not ordered, testing will be routed the 50-gene, CM50, panel.2019-05-13 17:29:14* Test Item Value Reference Range Interpretation Comments Molecular Diagnostics (Received) (test code = 8400) Yes [place] Visual Field, Intermediate - OU - Both [id number] 18:15:34Right EyeThreshold was 30-2. Reliability was borderline. Findings include generalized depression. Left EyeThreshold was 30-2. Reliability was borderline. Findings include non-specific defects. MD BradyFractionated Hczmmvnnu4564-04-37 15:52:37* Test Item Value Reference Range Interpretation Comments Bili Total (test code = 5096) 0.5 mg/dL <=1.2 Testing Performed at [facility], [address], [address], [place] [address] Bili Direct (test code = 5094) 0.1 mg/dL <=0.3 Testing Performed at [facility], [address], [place] [address] Bili Indirect (test code = 5095) 0.4 mg/dL 0-0.9 Testing Performed at [facility], [address], [address], [place] [address] MD BradyGlomerular Filtration Hskr4665-41-40 15:52:36* Test Item Value Reference Range Interpretation Comments eGFR-AA (test code = 8062) 99 >=60 mL/min/1.73 sq. m Normal eGFR >= 60 mL/min/1.73 m2 Note: The eGFR is calculated using the CKD-EPI equation. The eGFR declines with age. eGFR <60 mL/min/1.73 m2 is considered as "decreased". This equation should only be used for patients 18 and older. According to the National Kidney Foundation's Kidney Disease Outcome Quality Initiative (KDOQI) classification and 2012 Kidney Disease Improving Global Outcomes (KDIGO) Clinical Practice Guideline, the stage of CKD should be categorized based on estimated GFR. Stage Description GFR mL/min/1.73 m21 Normal or high GFR >=902 Mildly decreased GFR 60-893a Mildly to moderately decreased GFR 45-593b Moderately to severely decreased GFR 30-444 Severely decreased GFR 15-295 Kidney failure <15 Testing Performed at [facility], [facility] [facility] [address], [address], [place] [id number] eGFR-LANA (test code = 8063) 86 >=60 mL/min/1.73 sq. m Normal eGFR >= 60 mL/min/1.73 m2 Note: The eGFR is calculated using the CKD-EPI equation. The eGFR declines with age. eGFR <60 mL/min/1.73 m2 is considered as "decreased". This equation should only be used for patients 18 and older. According to the National Kidney Foundation's Kidney Disease Outcome Quality Initiative (KDOQI) classification and 2012 Kidney Disease Improving Global Outcomes (KDIGO) Clinical Practice Guideline, the stage of CKD should be categorized based on estimated GFR. Stage Description GFR mL/min/1.73 m21 Normal or high GFR >=902 Mildly decreased GFR 60-893a Mildly to moderately decreased GFR 45-593b Moderately to severely decreased GFR 30-444 Severely decreased GFR 15-295 Kidney failure <15 Testing Performed at [facility], [address], [address], [place] [address] MD BradyTotal Ctdbort9729-14-75 15:52:35* Test Item Value Reference Range Interpretation Comments Total Protein (test code = 7649) 7.3 6.4- 8.3 gm/dL Testing Performed at [facility], [address], [address], [place] [address] MD BradyCalcium Hxals5595-14-69 15:52:34* Test Item Value Reference Range Interpretation Comments Calcium Lvl (test code = 5258) 10.3 mg/dL 8.4-10.2 H Testing Performed at [facility], [facility] [address] [facility], [address], [place] [address] Lab Interpretation (test code = 56615-0) Abnormal MD BradyAlkaline Ecsmgfzxlnm3795-74-32 15:52:33* Test Item Value Reference Range Interpretation Comments Alk Phos (test code = 4768) 68 U/L 40-129 Testing Performed at [facility], [address], [address], [place] [address] MD BradyAlbumin Albne7492-30-86 15:52:32* Test Item Value Reference Range Interpretation Comments Albumin Lvl (test code = 4763) 4.6 3.5- 5.2 gm/dL Testing Performed at [facility], [address], [address], [place] [address] MD BradyAspartate Txfjbotaqahelhkl6622-03-08 15:52:31* Test Item Value Reference Range Interpretation Comments AST (test code = 4731) 15 U/L <=40 Testi ng Performed at [facility], [address], [address], [place] [address] MD BradyRayigsxhKHL8334-08-17 15:52:30* Test Item Value Reference Range Interpretation Comments ALT (test code = 4705) 11 U/L <=41 Testi ng Performed at [facility], [address], [address], [place] [address] MD BradyElectrolyte Lzjra9136-57-69 15:52:29* Test Item Value Reference Range Interpretation Comments Sodium Lvl (test code = 7355) 143 136- 145 mEq/L Testing Performed at [facility], [address], [address], [place] [address] Potassium Lvl (test code = 6854) 4.5 3.5- 5.1 mEq/L Testing Performed at [facility], [address], [address], [place] [address] Chloride (test code = 5279) 105 98- 107 mEq/L Testing Performed at [facility], [facility] [address] [address] [facility] [address], [address], [place] [address] CO2 (test code = 5227) 28 22- 29 mEq/L Testi ng Performed at [facility], [facility], [address], [place] [address] Anion Gap (test code = 9325) 10 4- 14 mEq/L Testing Performed at [facility], [address], [address], [place] [id number] MD Brady.Serum Odkoiwbqpj5095-15-37 15:52:28* Test Item Value Reference Range Interpretation Comments Creatinine (test code = 5399) 0.84 mg/dL 0.67-1.17 Testing Performed at [facility], [facility], [address], [place] [id number] MD BradyXexcyjkeMAS2268-09-58 15:52:27* Test Item Value Reference Range Interpretation Comments BUN (test code = 5055) 11 mg/dL 6-23 Testi ng Performed at [facility], [address] [place] [address], [address], [place] [id number] MD BradyGlucose Auonq4075-49-53 15:52:25* Test Item Value Reference Range Interpretation Comments Glucose Level (test code = 5699) 132 mg/dL 70-99 H Reference range is valid for fasting specimens only. Guidelines established by the [place] [employer] guidelines (Standards of Medical Care in Diabetes 2016. Diabetes Care 2016; 39: S13-22) are that a fasting glucose of greater than or equal to 126 mg/dL or a random glucose greater than or equal to 200 mg/dL with symptoms, that are confirmed by repeat testing on a different day, meet the criteria for diabetes mellitus. Testing Performed at [facility], [facility], [place] [address] Lab Interpretation (test code = 81750-2) Abnormal MD BradyMydheotxUusoafswfyii2825-85-29 15:17:35* Test Item Value Reference Range Interpretation Comments Neutrophil % (test code = 6491) 71.3 % 42-66 H All components of the Differential performed at [address], [address] [place] [address] Lymphocyte % (test code = 6194) 19.3 % 24-44 L Monocyte % (test code = 6422) 6.2 % 2-7 Eosinophil % (test code = 5520) 2.2 % 1-4 Basophil % (test code = 5068) 0.6 % 0-1 IGRE % (test code = 5958) 0.4 % 0-0.4 IG RE % count includes Metamyelocytes, Myelocytes, and Promyelocytes. Neutrophil Abs (test code = 6492) 4.96 K/uL 1.7-7.3 Lymphocyte Abs (test code = 6195) 1.34 K/uL 1-4.8 Monocyte Abs (test code = 6423) 0.43 K/uL 0.08-0.7 Eosinophil Abs (test code = 5521) 0.15 K/uL 0.04-0.4 Basophil Abs (test code = 5069) 0.04 K/uL 0-0.1 IG Abs (test code = 5954) 0.03 K/uL 0-0.04 Lab Interpretation (test code = 80340-6) Abnormal MD Brady.YKQ5319-33-71 15:17:33* Test Item Value Reference Range Interpretation Comments WBC (test code = 8034) 7.0 K/uL 4-11 RBC (test code = 6932) 4.76 4.50- 6.00 M/uL Hgb (test code = 5898) 13.6 14.0- 18.0 gm/dL L Hct (test code = 5860) 42.0 % 40-54 MCV (test code = 6222) 88 fL 82-98 MCH (test code = 6220) 28.6 pg 27-31 MCHC (test code = 6221) 32.4 31.0- 36.0 gm/dL RDW-SD (test code = 6972) 43.2 fL 35.1-46.3 RDW-CV (test code = 6971) 13.2 % 12-15.5 Platelet count (test code = 6832) 252 K/uL 140-440 MPV (test code = 6282) 9.0 fL 4-10.4 INRBC (test code = 5974) 0.0 % <=0.0 The INRBC (instrument NRBC) value reflects the enumerationof nucleated red blood cells contained in a 200uL sampleof whole blood analyzed by the instrument. This value maydiffer from the NRBC value reported in a manual differential,which is based on a 100 cell differential. Lab Interpretation (test code = 34596-0) Abnormal MD Brady
--- OUTSIDE RECORDS SUMMARY | 2019-12-30 18:47 | XMS REPORT | Clinical Summary ---
Author Author [employer] [employer] [facility] [employer] Address Unknown Phone Unavailable Care Team Providers Care Nursing Home Social Worker Name Role Phone Amandeep Garber MD PCP Allergies Not on File Medications Not on file Active Problems Not on file Encounters Care Team Description Date Type Specialty [place] MD Malignant neoplasm of brain, unspecified (HCC) (Primary Dx); Other abnormalities of gait and mobility; Left-sided weakness 06/14/2019 Transcribe Physical Therapy Orders after 12/25/2018 Social History Date Tobacco Use Types Packs/Day Years Used Never Assessed Sex Assigned at Date Recorded Not on file Industry Job Start Date Occupation Not on file Not on file Not on file Travel End Travel History Travel Start No recent travel history available. Last Filed Vital Signs Not on file Plan of Treatment Health Maintenance Due Date Last Done Comments DIABETIC RETINAL EYE EXAM 1945 DIABETIC FOOT EXAM 08/09/1953 URINE MICROALBUMIN 08/09/1953 COLONOSCOPY SCREENING 08/09/1993 SHINGLES VACCINES (#1) 08/09/1993 65+ PNEUMOCOCCAL VACCINE 08/09/2008 (1 of 2 - PCV13) INFLUENZA VACCINE 12/31/2019 Results Not on fileafter 12/25/2018 Insurance Type Payer Benefit Subscriber ID Effective Phone Address Plan / Dates Group PPO HUMANA MEDICARE HUMANA xxxxxxxxx 2017- MEDICARE Present PPO/PFFS/E RS MARK[place] Advance Directives For more information, please contact: [phone] 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
--- OUTSIDE RECORDS SUMMARY | 2019-12-30 18:47 | XMS REPORT | Clinical Summary ---
Author Author [employer] [employer] [facility] [employer] Address Unknown Phone Unavailable Care Team Providers Care Kiln Firer Name Role Phone Amandeep Garber MD PCP [...] Advance Directives For more information, please contact: [phone] Patient Sub Acute Care Nurse Explanation Type Date Recorded Advance Directives, Living Will and Medical Power of Inspector Dials
--- NOTE | 2020-01-02 21:30 | Electroencephalogram ---
DATE OF STUDY: REQUESTING PHYSICIAN: PROCEDURE: 30-minute EEG. INDICATIONS: EEG is being done to evaluate for syncope. EEG DATA: A 10-20 international electrode placement EEG, read in bipolar and transverse montages. Posterior dominant rhythm is a theta frequency about 6 to 7 hertz posterior head regions reactive, intermittently slow. No anterior beta frequencies noted during this EEG. No seizures captured during this study. Intermittent slowing in the delta frequencies also noted. EEG INTERPRETATION: This EEG suggest moderate encephalopathy or drowsiness. No underlying evidence of seizures captured during this study. JENNA CARDOZA MD RR/MODL /[id number]
== END 2019-12-29 18:26 | disposition home health service (06) | DRG 93 ==
LOC: ER 09:37 → ERHOLD 10:05 → MED/SURG3 14:58
PROVIDERS: ADMIT Family Medicine; ATTEND Family Medicine
DX: R29.818 Other symptoms and signs involving the nervous system (principal); R20.2 Paresthesia of skin; I10 Essential (primary) hypertension; E11.9 Type 2 diabetes mellitus without complications; E78.5 Hyperlipidemia, unspecified; E53.8 Deficiency of other specified B group vitamins; Z11.59 Encounter for screening for other viral diseases; R27.0 Ataxia, unspecified; G56.02 Carpal tunnel syndrome, left upper limb; Z85.841 Personal history of malignant neoplasm of brain
CPT/HCPCS: 36415; 70470; 70553; 71045; 80053; 80061; 82550; 82553; 82607; 82948; 83036; 83880; 84146; 84436; 84443; 84479; 84484; 85025; 85610; 85730; 93005; 93306; 93880; 95812; 96372; 97139; 99284; J3420; J7030; Q9967; U0002